=== PATIENT | female | born 1965 | race Caucasian/White ===

== ENCOUNTER → 2017-03-02 | Outpatient (CLI) | payer OTHER ==
--- NOTE | 2017-03-02 16:06 | PCVCIMAG ---
APPROVED REPORT Study performed: 03/02/2017 14:01:39 EXAM: Comprehensive 2D, Doppler, and color-flow Echocardiogram Other Information Study Quality: Adequate Risk Factors: Cardiac Risk Factors: HTN, Hyperlipidemia Indications Cardiomyopathy 2D Dimensions LVEF(%): 46.12 (>50%) IVSd: 8.74 (7-11mm) LVDd: 41.90 mm PWd: 7.64 (7-11mm) LVDs: 32.36 (25-40mm) Left Atrium: 38.13 (27-40mm) Aortic Root: 29.05 mm LV Single Plane 4CH: 48.92 % LV Single Plane 2CH: 56.45 %Willis's LVEF: 52.69 % Biplane EF: 52.0 % Volumes Left Atrial Volume (Systole) Single Plane 4CH: 44.70 mLSingle Plane 2CH: 49.91 mL LA ESV Index: 25.00 mL/m2 Aortic Valve AoV Peak Clay.: 1.22 m/s AO Peak Gr.: 5.97 mmHgLVOT Max P.44 mmHg LVOT Max V: 0.78 m/s Mitral Valve E/A Ratio: 0.8 MV Decel. Time: 248.69 ms MV E Max Clay.: 0.43 m/s MV A Clay.: 0.54 m/s IVRT: 128.03 ms Pulmonary Valve PV Peak Clay.: 0.97 m/sPV Peak Gr.: 3.78 mmHg Pulmonary Vein P Vein S: 0.34 m/sP Vein A: 0.29 m/s P Vein D: 0.43 m/sP Vein A Dur.: 107.3 msec P Vein S/D Ratio: 0.79 Tricuspid Valve TR Peak Clay.: 2.27 m/s TR Peak Gr.: 20.60 mmHg Left Ventricle The left ventricle is normal size. There is normal LV segmental wall motion. There is normal left ventricular wall thickness. Left ventricular systolic function is normal. The left ventricular ejection fraction is within the normal range. LVEF is 50-55%. Grade I - abnormal relaxation pattern. Right Ventricle The right ventricle is normal size. The right ventricular systolic function is normal. Atria The left atrium size is normal. The right atrium size is normal. Aortic Valve The aortic valve is normal in structure. No aortic regurgitation is present. There is no aortic valvular stenosis. Mitral Valve The mitral valve is normal in structure. There is no mitral valve regurgitation noted. No evidence of mitral valve stenosis. Tricuspid Valve The tricuspid valve is normal in structure. Trace tricuspid regurgitation with PAP of 28 mmHg. Pulmonic Valve The pulmonary valve is normal in structure. There is no pulmonic valvular regurgitation. Great Vessels The aortic root is normal in size. IVC is normal in size and collapses with >50% inspiration Pericardium There is no pericardial effusion. <Conclusion> Left ventricular systolic function is normal. There is normal LV segmental wall motion. LVEF is 50-55%. Grade I diastolic dysfunction. The aortic valve is normal in structure. No aortic valvular stenosis. The mitral valve is normal in structure. No mitral valve regurgitation noted. Trace tricuspid regurgitation with PAP of 28 mmHg. There is no pericardial effusion.
== END | disposition home or self-care (01) ==
LOC: PCVCIMAG 14:05
PROVIDERS: ATTEND Internal Medicine
DX: I07.1 Rheumatic tricuspid insufficiency (principal); I42.8 Other cardiomyopathies; I10 Essential (primary) hypertension; E78.5 Hyperlipidemia, unspecified; M06.9 Rheumatoid arthritis, unspecified; G93.2 Benign intracranial hypertension; Z85.3 Personal history of malignant neoplasm of breast; Z85.6 Personal history of leukemia; Z90.13 Acquired absence of bilateral breasts and nipples; Z96.653 Presence of artificial knee joint, bilateral; Z79.899 Other long term (current) drug therapy; Z88.1 Allergy status to other antibiotic agents
CPT/HCPCS: 80061; 93306; G0463

== ENCOUNTER → 2019-06-23 | Outpatient (CLI) | payer OTHER ==
--- NOTE | 2019-06-23 15:49 | PCVCIMAG ---
APPROVED REPORT Study performed: 06/23/2019 14:35:04 EXAM: Comprehensive 2D, Doppler, and color-flow Echocardiogram Patient Location: Echo lab Status: routine BSA: 1.96 HR: 64 bpmBP: 136/84 mmHg Rhythm: NSR Other Information Study Quality: Adequate Technically limited study due to breast augmentation. Risk Factors: Cardiac Risk Factors: DM, Hyperlipidemia Indications Cardiomyopathy 2D Dimensions IVSd: 12.70 (7-11mm) LVDd: 47.21 mm PWd: 10.59 (7-11mm) LVDs: 34.79 (25-40mm) Left Atrium: 38.29 (27-40mm) Aortic Root: 30.76 mm LV Single Plane 4CH: 53.07 % LV Single Plane 2CH: 48.58 % Biplane EF: 51.3 % Volumes Left Atrial Volume (Systole) Single Plane 4CH: 56.77 mLSingle Plane 2CH: 61.25 mL LA ESV Index: 31.00 mL/m2 Aortic Valve AoV Peak Clay.: 1.21 m/s AO Peak Gr.: 5.83 mmHgLVOT Max P.27 mmHg LVOT Max V: 0.75 m/s Mitral Valve E/A Ratio: 1.11 MV Decel. Time: 300.77 ms MV E Max Clay.: 0.48 m/s MV A Clay.: 0.44 m/s IVRT: 86.51 ms Pulmonary Valve PV Peak Clay.: 1.07 m/sPV Peak Gr.: 4.56 mmHg Pulmonary Vein P Vein S: 0.33 m/sP Vein A: 0.32 m/s P Vein D: 0.34 m/sP Vein A Dur.: 141.9 msec Tricuspid Valve TR Peak Clay.: 2.35 m/s TR Peak Gr.: 22.04 mmHg Left Ventricle The left ventricle is normal size. There is normal LV segmental wall motion. Borderline concentric left ventricular hypertrophy. The left ventricular systolic function is normal. The left ventricular ejection fraction is within the normal range. LVEF is 50-55%. The left ventricular diastolic function is normal. Right Ventricle The right ventricle is normal size. The right ventricular systolic function is normal. Atria The left atrium size is normal. The right atrium size is normal. Aortic Valve The aortic valve is normal in structure. No aortic regurgitation is present. There is no aortic valvular stenosis. Mitral Valve The mitral valve is normal in structure. Trace mitral regurgitation. No evidence of mitral valve stenosis. Tricuspid Valve The tricuspid valve is normal in structure. Mild tricuspid regurgitation with PAP of 29 mmHg. Pulmonic Valve The pulmonary valve is normal in structure. Trace pulmonic regurgitation. Great Vessels The aortic root is normal in size. IVC is normal in size and collapses >50% with inspiration. Pericardium There is no pericardial effusion. There is no pleural effusion. <Conclusion> The left ventricular systolic function is normal. There is normal LV segmental wall motion. LVEF is 50-55%. Normal diastolic function The aortic valve is normal in structure. No aortic regurgitation or stenosis The mitral valve is normal in structure. Trace mitral regurgitation. Mild tricuspid regurgitation with pulmonary artery presusre of 29 mmHg. There is no pericardial effusion.
== END | disposition home or self-care (01) ==
LOC: PCVCIMAG 15:08
PROVIDERS: ATTEND Internal Medicine
DX: I07.1 Rheumatic tricuspid insufficiency (principal); I42.9 Cardiomyopathy, unspecified; I10 Essential (primary) hypertension; E78.5 Hyperlipidemia, unspecified; E11.9 Type 2 diabetes mellitus without complications; M06.9 Rheumatoid arthritis, unspecified; G93.2 Benign intracranial hypertension; Z79.82 Long term (current) use of aspirin
CPT/HCPCS: 93306